=== PATIENT | female | born 1990 | race Caucasian/White ===

== ENCOUNTER 2016-08-15 20:07 | Emergency (ER) | payer OTHER ==
[~2016-08-15] VITALS: Ht 162.6 cm; Wt 63.6 kg
[2016-08-15 20:10] VITALS: BP 113/57; PULSE 99; TEMP 98.4
[2016-08-15] MEDS ORDERED: PRIL40 PO (20:45)
[2016-08-15] MEDS ORDERED: BIRTH CONTROL PO (20:45)
[2016-08-15] MEDS ORDERED: ULTRAM 50MG TAB50 MG PO (20:45)
[2016-08-15] MEDS ORDERED: NITRO-BID22 TOP (20:46)
[2016-08-15 21:02] LABS: BASO % 0.5 % (0.0-2.0); EOS # 0.3 (0.0-0.7); GRAN # 3.2 (1.4-6.5); LYMPH # 1.7 (1.2-3.4); LYMPH % 28.5 % (20.0-51.0); MEAN CELL VOLUME 86 fl (80.0-100.0); MEAN CORPUSCULAR HGB CONC 33 g/dl (33.0-37.0); MEAN PLATELET VOLUME 9.9 fl (7.4-10.4); MONO # 0.8 (0.1-0.6); MONO % 12.8 % (1.7-9.3); PLATELET COUNT 411 K/mm3 (130-400); RED BLOOD COUNT 4.16 M/mm3 (4.10-5.30); REDCELL DISTRIBUTION WIDTH-CV 12.9 % (11.5-14.5)
[2016-08-15 21:03] LABS: HEMATOCRIT 35.6 % (37.0-47.0); HEMOGLOBIN 11.7 g/dl (12.5-16.0); MEAN CORPUSCULAR HEMOGLOBIN 28 pg (27.0-31.0)
[2016-08-15 21:07] LABS: ADJUSTED CALCIUM 8.9 mg/dL (8.4-10.2); ALBUMIN 3.6 gm/dL (3.5-5.0); BILIRUBIN,TOTAL 0.4 mg/dL (0.0-1.0); CALCIUM 8.6 mg/dL (8.4-10.2); CREATININE, serum 0.86 mg/dL (0.52-1.25); TOTAL PROTEIN 6.7 gm/dL (6.4-8.2)
[2016-08-15] MEDS ORDERED: XARELTO15 MG PO (22:06)
[2016-08-15] MEDS ORDERED: NORCO 325 MG-51 TAB PO (22:06)
== END 2016-08-15 22:54 | disposition home or self-care (01) ==
LOC: COL.ER 20:07
PROVIDERS: Emergency Medicine
DX: I82.4Z2 Acute embolism and thrombosis of unspecified deep veins of left distal lower extremity (principal); I82.812 Embolism and thrombosis of superficial veins of left lower extremity; M34.9 Systemic sclerosis, unspecified; Z79.3 Long term (current) use of hormonal contraceptives

== ENCOUNTER 2016-08-24 15:27 | Emergency (ER) | payer OTHER ==
[~2016-08-24] VITALS: Ht 162.6 cm; Wt 63.6 kg
[~2016-08-24 15:27] MED LIST: BIRTH CONTROL PO; NITRO-BID22 TOP; NORCO 325 MG-51 TAB PO; PRIL40 PO; ULTRAM 50MG TAB50 MG PO; XARELTO15 MG PO
[2016-08-24 15:31] VITALS: TEMP 99.1
[2016-08-24 16:14] LABS: BASO % 0.3 % (0.0-2.0); EOS # 0.3 (0.0-0.7); EOS % 5.1 % (0-4.0); GRAN # 3.3 (1.4-6.5); LYMPH # 1.9 (1.2-3.4); LYMPH % 29.1 % (20.0-51.0); MEAN CELL VOLUME 85 fl (80.0-100.0); MEAN CORPUSCULAR HGB CONC 33 g/dl (33.0-37.0); MEAN PLATELET VOLUME 9.9 fl (7.4-10.4); MONO # 0.9 (0.1-0.6); MONO % 14.3 % (1.7-9.3); PLATELET COUNT 447 K/mm3 (130-400); RED BLOOD COUNT 4.23 M/mm3 (4.10-5.30); REDCELL DISTRIBUTION WIDTH-CV 12.7 % (11.5-14.5); WHITE BLOOD COUNT 6.4 K/mm3 (4.8-10.8)
[2016-08-24 16:16] LABS: HEMOGLOBIN 11.9 g/dl (12.5-16.0); MEAN CORPUSCULAR HEMOGLOBIN 28 pg (27.0-31.0)
[2016-08-24 16:26] LABS: ADJUSTED CALCIUM 9.2 mg/dL (8.4-10.2); ALBUMIN 3.5 gm/dL (3.5-5.0); BILIRUBIN,TOTAL 0.4 mg/dL (0.0-1.0); C-REACTIVE PROTEIN 1.3 mg/dL (0.0-0.9); CALCIUM 8.8 mg/dL (8.4-10.2); CREATININE, serum 0.87 mg/dL (0.52-1.25); POTASSIUM 3.8 mmol/L (3.4-5.0); TOTAL PROTEIN 6.5 gm/dL (6.4-8.2)
[2016-08-24 17:47] VITALS: BP 128/76; PULSE 77
== END 2016-08-24 17:58 | disposition home or self-care (01) ==
LOC: COL.ER 15:27
PROVIDERS: Family Medicine
DX: K21.9 Gastro-esophageal reflux disease without esophagitis (principal); K44.9 Diaphragmatic hernia without obstruction or gangrene; R07.89 Other chest pain; Z86.718 Personal history of other venous thrombosis and embolism; Z79.01 Long term (current) use of anticoagulants; M34.9 Systemic sclerosis, unspecified
CPT/HCPCS: Q9967

== ENCOUNTER → 2016-11-08 | Outpatient (REF) | LOC: WSOH 17:45 | DX: Z02.89 Encounter for other administrative examinations (principal) ==

== ENCOUNTER → 2016-12-27 | Outpatient (CLI) | payer OTHER | LOC: COL.RAD 14:28 | DX: M34.9 Systemic sclerosis, unspecified (principal); R13.10 Dysphagia, unspecified ==

== ENCOUNTER → 2017-07-14 | Outpatient (CLI) | payer OTHER | LOC: COL.PUL 11:15 | DX: M34.9 Systemic sclerosis, unspecified (principal) ==

== ENCOUNTER → 2019-01-18 | Outpatient (CLI) | payer BC | LOC: COL.VAS 09:55 | DX: R06.02 Shortness of breath (principal) ==

== ENCOUNTER → 2019-02-20 | Outpatient (CLI) | payer BC | LOC: COL.PUL 10:36 | DX: R06.02 Shortness of breath (principal) ==